=== PATIENT | male | born 1985 | race Two or more races ===

== ENCOUNTER 2020-08-11 22:38 | Emergency (ER) | payer OTHER ==
[~2020-08-11] VITALS: Ht 175.3 cm; Wt 65.1 kg
[2020-08-11 22:43] VITALS: BP 152/96
== END 2020-08-11 23:53 | disposition left against medical advice (07) ==
LOC: EMS 22:38
DX: K08.89 Other specified disorders of teeth and supporting structures (principal); Z53.21 Procedure and treatment not carried out due to patient leaving prior to being seen by health care provider

== ENCOUNTER 2020-11-16 02:24 | Emergency (ER) | payer OTHER ==
[~2020-11-16] VITALS: Ht 175.3 cm; Wt 65.9 kg
[2020-11-16 02:27] VITALS: BP 139/81
== END 2020-11-16 03:30 | disposition left against medical advice (07) ==
LOC: EMS 02:25
DX: R50.9 Fever, unspecified (principal); Z53.21 Procedure and treatment not carried out due to patient leaving prior to being seen by health care provider

== ENCOUNTER 2021-02-09 13:01 | Emergency (ER) | payer OTHER ==
[~2021-02-09] VITALS: Ht 175.3 cm; Wt 86.4 kg
[2021-02-09 14:42] VITALS: BP 131/87
== END 2021-02-09 15:33 | disposition home or self-care (01) ==
LOC: EDUNIT# 13:01 → EMS 13:05
DX: S30.852A Superficial foreign body of penis, initial encounter (principal); I10 Essential (primary) hypertension; F17.210 Nicotine dependence, cigarettes, uncomplicated; X58.XXXA Exposure to other specified factors, initial encounter; Y93.89 Activity, other specified; Y92.89 Other specified places as the place of occurrence of the external cause; Y99.8 Other external cause status
CPT/HCPCS: 74022; 74176; 99284; Z7502

== ENCOUNTER 2021-11-19 22:36 | Emergency (ER) | payer OTHER ==
[~2021-11-19] VITALS: Ht 175.3 cm; Wt 72.7 kg
[2021-11-19 22:58] VITALS: BP 114/79
[2021-11-20 03:53] LABS: COVID AG,FIA SOURCE NASAL SWAB
== END 2021-11-20 06:58 | disposition left against medical advice (07) ==
LOC: EMS 22:36
DX: Z53.21 Procedure and treatment not carried out due to patient leaving prior to being seen by health care provider (principal); F41.9 Anxiety disorder, unspecified; F32.9 Major depressive disorder, single episode, unspecified; I10 Essential (primary) hypertension; F17.210 Nicotine dependence, cigarettes, uncomplicated; Z20.822 Contact with and (suspected) exposure to COVID-19
CPT/HCPCS: 99285; Z7502